=== PATIENT | male | born 1990 | race Caucasian/White ===

== ENCOUNTER 2020-07-10 13:14 | Emergency (ER) | payer MEDICAID ==
[~2020-07-10] VITALS: Ht 165.1 cm; Wt 60.8 kg
[2020-07-10 13:26] VITALS: Ht 165.1 cm; Wt 60.8 kg
[2020-07-10] MEDS ORDERED: IBU600 M2 PO (15:28)
[2020-07-10] MEDS ORDERED: PROAIR HFA8.5 GM INH (15:30)
[2020-07-10 15:58] VITALS: BP 141/77
== END 2020-07-10 15:58 | disposition home or self-care (01) ==
LOC: ED 13:14
DX: R07.89 Other chest pain (principal); R06.02 Shortness of breath; Z20.828 Contact with and (suspected) exposure to other viral communicable diseases
CPT/HCPCS: U0003